=== PATIENT | female | born 1990 | race Hispanic/Latino ===

== ENCOUNTER 2019-02-24 13:31 | Emergency (ER) | payer OTHER, SELFPAY ==
[2019-02-24 14:23] VITALS: BP 130/83; PULSE 66; RESP 18; TEMP 36.2; O2SAT 99; BMI 24.0
--- NOTE | 2019-02-24 14:48 | ED.BACK ---
HPI - Back Pain/Injury <RAJINDER Addison - Last Filed: 02/24/19 15:36> General Chief Complaint: Neck Pain/Injury Stated Complaint: Whip lash tight neck Time Seen by Provider: 02/24/19 14:32 Source: patient Mode of arrival: ambulatory Limitations: no limitations History of Present Illness HPI Narrative: pt says she had neck surgery done in 2011, awoke with neck pain, denies any injury/trauma, says the pain flares up once in awhile MD Complaint: other (neck pain) Onset (ago): day(s) (this am) Duration: constant Similar Symptoms Previously: Yes Severity: severe Radiation: none Relieving factors: none Exacerbating factors: movement Associated symptoms: denies other symptoms Treatments prior to arrival: other (none) Related Data Previous Rx's Medication Instructions Recorded cyclobenzaprine 10 mg PO Q8H PRN #20 tab 02/24/19 tramadol [Ultram] 50 mg PO Q6H PRN #20 tab 02/24/19 Allergies Allergy/AdvReac Type Severity Reaction Status Date / Time yellow fever vaccine live Allergy Anaphylaxis Verified 02/24/19 14:27 Review of Systems <RAJINDER Addison - Last Filed: 02/24/19 15:36> Review of Systems ROS Unobtainable: All systems reviewed & are unremarkable except as noted in HPI and below Constitutional Reports as per HPI, Reports system reviewed and no additional complaints, except as docu, Denies fever(s), Denies headache(s) and Denies weakness ENT Ears, Nose, Mouth, and Throat: Denies facial pain, Denies headache(s), Denies nasal congestion, Denies nasal discharge, Denies neck mass, Reports neck pain, Denies sore throat and Denies throat swelling Cardiovascular Denies chest pain and Denies dyspnea Respiratory Denies dyspnea Musculoskeletal Denies abnormal gait, Denies back pain, Denies myalgias, Reports limited range of motion, Denies muscle cramps, Denies muscle weakness, Reports neck pain and Denies numbness Neurologic Denies abnormal gait, Denies headache(s), Denies numbness and Denies weakness Allergic/Immunologic Denies throat swelling PFSH <RAJINDER Addison - Last Filed: 02/24/19 15:36> Social History Smoking Status: Never smoker Social History Smoking Status: Never smoker Exam <RAJINDER Addison - Last Filed: 02/24/19 15:36> Initial Vital Signs Initial Vital Signs: Vital Signs Temperature 97.1 F L 02/24/19 14:23 Pulse Rate 66 02/24/19 14:23 Respiratory Rate 18 02/24/19 14:23 Blood Pressure 130/83 02/24/19 14:23 Pulse Oximetry 99 02/24/19 14:23 Const General: cooperative, healthy appearing, comfortable, well developed and well groomed Nutritional Appearance: average body habitus Orientation: alert, awake and oriented x3 HENMT Head: normal to inspection and normocephalic Ears: hearing grossly normal bilaterally, external ears normal and mastoids normal Nose: external nose normal and nares normal Face and sinus: normal facial exam, sinuses nontender and face symmetric Mouth: oral mucosae normal, lip normal, tongue normal, oropharynx normal and moist mucous membranes Teeth and gingiva: dentition normal and gingiva normal Throat: posterior oropharynx normal, tonsils normal and uvula midline Eyes General: appearance normal, both eyes and all related structures Visual George: normal visual george by confrontation Eyelids: eyelids normal Conjunctivae: conjunctivae normal Sclera: sclerae normal Pupils: PERRL EOM: EOM intact bilaterally Neck Neck: normal visual inspection, No full ROM, no meningeal signs, trachea midline, supple, No lymphadenopathy, No positive Brudzinski's sign, No positive Kernig's sign, tender, No torticollis, No tracheal deviation and other (decreased rom secondary to pain, tender on B sides of neck) Other: in the paraspinal areas of her neck Resp Effort & Inspection: normal respiratory effort and able to speak in complete sentences Back/Spine/Pelvis Cervical Spine: cervical ROM normal Thoracic/Lumbar Spine: thoraco-lumbar ROM normal Skin General: no rashes or lesions noted, elasticity normal, turgor normal and dry skin Neuro General: alert, awake, oriented x3 and meningeal signs present Cognition: normal cognition Speech: speech normal Gait: normal gait Motor: muscle tone normal throughout Sensory Exam: no sensory deficits noted Extrem General: normal to inspection and full ROM Psych Appearance: grossly normal and well kempt Mental Status: mental status grossly normal Speech and Movement: speech and movement normal Mood: congruent mood Affect: normal affect Attitude: cooperative Thought Process: normal Thought Content: normal Judgment: judgment good <DO Brooke Morales Last Filed: 02/25/19 07:44> Initial Vital Signs Initial Vital Signs: Vital Signs Temperature 97.1 F L 02/24/19 14:23 Pulse Rate 66 02/24/19 14:23 Respiratory Rate 18 02/24/19 14:23 Blood Pressure 130/83 02/24/19 14:23 Pulse Oximetry 99 02/24/19 14:23 Course <RAJINDER Addison - Last Filed: 02/24/19 15:36> Orders Ordered: Discontinued Medications Ketorolac Tromethamine (Toradol) 60 mg IM NOW ONE Stop: 02/24/19 14:53 Last Admin: 02/24/19 14:56 Dose: 60 mg Vital Signs - 8 hr 02/24/19 14:23 Temperature 97.1 F L Pulse Rate 66 Respiratory Rate 18 Blood Pressure 130/83 Pulse Oximetry 99 <Aicha Dee DO - Last Filed: 02/25/19 07:44> Orders Ordered: Discontinued Medications Ketorolac Tromethamine (Toradol) 60 mg IM NOW ONE Stop: 02/24/19 14:53 Last Admin: 02/24/19 14:56 Dose: 60 mg Vital Signs - 8 hr 02/24/19 14:23 Temperature 97.1 F L Pulse Rate 66 Respiratory Rate 18 Blood Pressure 130/83 Pulse Oximetry 99 MDM - Back Pain/Injury <RAJINDER Addison - Last Filed: 02/24/19 15:36> Differential Diagnosis Differential diagnosis: Likely other (neck pain, substance abuse, torticollis, chronic pain issues, cervical strain) Discharge Plan Departure Patient Disposition: Home Clinical Impression: Acute neck pain Discharge Date/Time: 02/24/19 15:56 Interventions: ED Discharge Assessment Last Done: 02/24/19 15:55 Instructions: DI for Neck Pain Prescriptions: New cyclobenzaprine 10 mg tablet 10 mg PO Q8H PRN (Reason: muscle spasm) Qty: 20 RF: 0 tramadol [Ultram] 50 mg tablet 50 mg PO Q6H PRN (Reason: pain) Qty: 20 RF: 0 Referrals: Susannah Hui PA-C [[facility]] - (follow up in 5 days as needed for continued neck pain/issues) James Osman PA-C [[facility] Interview[facility]] - Briseida Hooper PA-C [[facility] Interviewing Clerk] - Igor Dahl MD [Non-Staff] - Chloe Cuellar DO [Physician] - <Aicha Dee DO - Last Filed: 02/25/19 07:44> Cosign ED Attending Cosignature Attestation: I was immediately available in the department for consultation. This documentation has been reviewed and I agree with assessment and plan. Supervised by Aicha Dee DO
[2019-02-24] MEDS: KETOROLAC 60 MG/2 ML VIAL IM (14:56)
[2019-02-24 15:55] VITALS: BP 124/78; PULSE 50
== END 2019-02-24 15:56 | disposition home or self-care (01) ==
PROVIDERS: Emergency Provider Nurse Practitioner
DX: M54.2 Cervicalgia (principal)
CPT/HCPCS: 96372; 99282; 99283; J1885